=== PATIENT | male | born 1975 | race Caucasian/White ===

== ENCOUNTER → 2024-03-23 15:33 | Outpatient (REF) | payer MEDICARE, BC, SELFPAY ==
[2024-03-23 17:46] LABS: ALT (SGPT) 25 U/L (0-50); AST (SGOT) 28 U/L (17-59); Albumin 4.6 g/dl (3.5-5.0); Alkaline Phosphatase 82 U/L (38-126); Direct Bilirubin 0.4 mg/dl (0.0-0.4); Total Bilirubin 0.7 mg/dl (0.2-1.3); Total Protein 7.4 g/dl (6.3-8.2)
== END ==
LOC: REG 15:33
PROVIDERS: ATTENDING PHYSICIAN Internal Medicine
DX: B35.1 Tinea unguium (principal)
CPT/HCPCS: 36415; 80076

== ENCOUNTER 2024-04-29 22:21 | Inpatient (IN) | payer MEDICARE, BC, SELFPAY ==
[2024-04-29] VITALS (7 sets, daily range): BP systolic 108–132; BP diastolic 56–83; BMI 28.4
--- NOTE | 2024-04-29 20:37 | ED.GENMED ---
History of Present Illness
General
Chief Complaint: Weakness
Source: family (father)
Time Seen by Provider: 04/29/24 19:35
Travel History
Have you had any contact with someone who has COVID-19?: No
Do you have any symptoms of coronavirus? Fever > 100 degrees, chills, cough, shortness of breath, sore throat, loss of taste or smell, muscle aches, or headache?: No
History of Present Illness
History of Present Illness:
48-year-old gentleman with a prior history of a traumatic brain injury presents to the emergency room for evaluation due to lethargy. Patient lives with his father. Patient is able to perform his own activities of daily living and does have a job
but does require support from his father. He came home from work today and was noted to be much less interactive than normal. He was sitting and dozing off. That is noticed the patient's had a cough for the past couple days. Patient offers no
complaints but that states he would never really complain even if he was sick or having pain.
Past History
Past History
ED Past Medical History: Other (TBI)
ED Past Surgical History: Other (Trach)
Patient has exhibited threatening behavior?: No
PSI?: No
Social History
Tobacco: Non-smoker
Alcohol: None
Drug: None
Personal: Single
Living: with family
Phy Exam
Physical Exam
Physical Exam:
General: Awake, Alert, Oriented X2. Appears to have some cognitive limitations
Vitals: Febrile at 103 (by my own measurement), hypoxic on room air at 89%
Head: Atraumatic, area of ecchymosis noted right frontal region
Eyes: Pupils equal, EOMI
Throat: Airway intact, no exudates
Neck: Trachea midline
Lungs: Rhonchi bilateral bases l
Heart: Regular rate, no murmurs
Abd: Soft, Nontender, No pulsatile mass
Neuro: Nonfocal
Skin: Warm, dry, no rash
Extremities: pulses equal b/l, no edema
Course
Orders/Labs/Results
Orders:
Orders
04/29/24 20:34
Urinalysis Reflex To Culture Urgent
Date Specimen was Collected: 04/29/24
Time Specimen was Collected: 20:59
Acetaminophen [Tylenol] 650 mg PO NOW STA
04/29/24 20:41
CR Chest - 2 Views Urgent
Comment:
Reason For Exam: fever, cough
04/29/24 20:45
Blood Culture Q30M
EMILEE Source: Blood/Venous
Specimen Description:
04/29/24 20:51
COVID-19 Antigen Urgent
Source: Nasal Swab
Complete Blood Count/With Diff Urgent
Lactic Acid Q4H
Comment: CANCEL 2nd LACTIC ACID IF 1st LACTIC ACID IS LESS THAN 2
Influenza A+B Rapid Molecular Urgent
EMILEE Source: Nasal Swab
Specimen Description:
04/29/24 20:52
Comprehensive Metabolic Panel Urgent
Blood Culture Q30M
EMILEE Source: Blood/Venous
Specimen Description:
04/29/24 21:52
Azithromycin 500 mg/250 ml [Zithromax Infusion] 500 mg in 250 ml IV NOW
CefTRIAXone [Rocephin] 1,000 mg IV NOW STA
Abnormal Lab Results
04/29/24 04/29/24
20:51 20:52
Absolute Neuts (auto) 8.8 H 10^3/uL
(1.4-6.5)
Absolute Lymphs (auto) 0.8 L 10^3/uL
(1.2-3.4)
Absolute Monos (auto) 0.8 H 10^3/uL
(0.1-0.6)
Neutrophils % 83.7 H %
(42.2-75.2)
Lymphocytes % 7.9 L %
(20.5-51.1)
Sodium 134 L mmol/L
(135-145)
Chloride 96 L mmol/L
(98-107)
Glucose 112 H mg/dl
(70-99)
Total Bilirubin 1.6 H mg/dl
(0.2-1.3)
04/29/24 20:51
04/29/24 20:52
Vital Signs
Initial and Last Documented VS:
Initial Vital Signs
Temp Pulse Resp BP Pulse Ox
100.3 F 96 16 127/80 94
04/29/24 19:00 04/29/24 19:00 04/29/24 19:00 04/29/24 19:00 04/29/24 19:00
Last Documented Vital Signs
Temp Pulse Resp BP Pulse Ox
100.3 F 81 24 132/68 91
04/29/24 19:00 04/29/24 20:15 04/29/24 20:15 04/29/24 20:00 04/29/24 20:15
MDM/Problems Addressed
Differential Diagnosis Includes:
covid, flu, pneumonia, uti
MDM/Problems Addressed:
Patient presents with lethargy, mild cough. Noted to be hypoxic on room air at 89 to 90%. Patient hemodynamically stable. Pulse ox improved with supplemental oxygen. Given hypoxia will hospitalize for IV antibiotics.
*Radiology
Radiology exam reviewed: preliminary read by ED provider (Right lower lobe pneumonia)
*Pulse Oximetry
Patient hypoxic: yes
*Critical Care Note
Total Time (30-74mins, 75-104mins- exclusive of procedures): Not Applicable
Patient Management
Social determinants of health affecting care: Living situation and Strong social support
ED Attending Note
-
Portions of this chart may have been created with voice recognition software.� Occasional wrong word or��sound alike� substitutions may have occurred due to the inherent limitations of voice recognition software.
Discharge Plan
Departure
Patient Disposition: Admit
Date of Disposition: 04/29/24
Time of Disposition: 21:54
Admit to: Med/Surg
Presentation/result/management discussed w/ accepting MD/DO: Hospitalist
Condition: Fair
Discharge Problem:
Pneumonia, Hypoxia
Prescriptions:
No Action
metronidazole 500 MG tablet
500 mg PO TID Qty: 15 0RF
levofloxacin 250 MG tablet
250 mg PO DAILY Qty: 5 0RF
Referrals:
Brian Keys MD [Family Provider] -
Interventions
Interventions:
*General Assessment Last Done: 04/29/24 19:00
*ED COVID-19 Vaccine History Last Done: 04/29/24 19:00
ED- Cardiac Assessment Last Done: 04/29/24 21:04
ED- Neurological Assessment Last Done: 04/29/24 21:04
ED- Pulmonary Assessment Last Done: 04/29/24 21:04
Discharge Date and Time
Print Language: CANADIAN
[2024-04-29 21:00] LABS: % Basophils 0.3 % (0-2); % Eosinophils 0.1 % (0-6); % Immature Granulocytes 0.3 % (0-0.5); % Lymphocytes 7.9 % (20.5-51.1); % Monocytes 7.7 % (1.7-9.3); % Neutrophils 83.7 % (42.2-75.2); Absolute Lymphocytes 0.8 10^3/uL (1.2-3.4); Absolute Monocytes 0.8 10^3/uL (0.1-0.6); Absolute Neutrophils 8.8 10^3/uL (1.4-6.5); Hematocrit 44.1 % (39.0-52.0); Hemoglobin 15.6 g/dL (13.0-18.0); Mean Corp Hgb Conc. 35.4 g/dL (33.0-37.0); Mean Corpuscular Hgb 28.9 pg (27.0-31.0); Mean Corpuscular Volume 81.7 fL (80.0-94.0); Mean Platelet Volume 9.2 fL (7.4-10.4); Nucleated Red Blood Cells % 0 % (-); Platelet Count 222 10^3/uL (130-400); Red Cell Dist. Width 12.8 % (11.5-14.5); White Blood Cell Count 10.5 10^3/uL (4.8-10.8)
[2024-04-29] MEDS: TYLENOL 650 MG PO (21:01)
[2024-04-29 21:09] LABS: Lactic Acid 1.3 mmol/L (0.7-2.0)
[2024-04-29 21:16] LABS: ALT (SGPT) 18 U/L (0-50); AST (SGOT) 25 U/L (17-59); Albumin 4.4 g/dl (3.5-5.0); Alkaline Phosphatase 92 U/L (38-126); Blood Urea Nitrogen 19 mg/dl (9-20); Calcium 8.9 mg/dl (8.4-10.2); Carbon Dioxide 29 mmol/L (22-30); Glucose 112 mg/dl (70-99); Total Bilirubin 1.6 mg/dl (0.2-1.3); Total Protein 7.5 g/dl (6.3-8.2); eGFR > 60.00
[2024-04-29 21:19] LABS: COVID-19 Antigen Negative (Negative)
[2024-04-29 21:24] LABS: Chloride 96 mmol/L (98-107); Potassium 4.1 mmol/L (3.5-5.1); Sodium 134 mmol/L (135-145)
[2024-04-29] MEDS: ROCEPHIN 1000 MG IV (21:57)
[2024-04-29] MEDS: ZITHROMAX INFUSION 250 IV (21:57)
[2024-04-29] MEDS: NSS 1000 IV ×2 (22:00→23:28)
--- NOTE | 2024-04-29 22:15 | HPS.HSE ---
Family Physician
-
Family Physician: Reed Keys
Chief Complaint
-
fatigue
History of Present Illness
48-year-old male with past medical history of traumatic brain injury with intellectual disability, hyperlipidemia presenting with lethargy and fatigue over the past 12 hours. He did have a cough that is slightly more prominent than usual as well as
shortness of breath. He did have chills. No chest pain. No nausea or vomiting or diarrhea.
Patient's balance and gait has been worsening over the past year.
No smoking or alcohol use.
Medical History
Past Medical History
Past Medical History: Reports Other (traumatic brain injury with intellectual disability, hyperlipidemia)
Past Surgical History: Reports None
Social History
Tobacco: Non-smoker
Alcohol: None
Drug: None
Family History
Family History: Not pertinent
Allergies / Home Medications
Allergies reflects when Allergies were last updated in [facility].
Home Medications with original date entered in [facility]
Allergy/Medication List:
Allergies
Allergy/AdvReac Type Severity Reaction Status Date / Time
No Known Allergies Allergy Verified 04/29/24 19:05
Home Medications
terbinafine HCl 250 mg tablet 250 mg PO Q36H 04/29/24
Review of Systems
-
History Source: Patient
A 12 point ROS was completed and negative except as noted: Yes
Constitutional: Reports See HPI
EENT: Reports No Symptoms
Respiratory: Reports See HPI
Cardiac: Reports No Symptoms
Abdomen/GI: Reports No Symptoms
: Reports No Symptoms
Musculoskeletal: Reports No Symptoms
Skin: Reports No Symptoms
Neurological: Reports No Symptoms
Endocrine: Reports No Symptoms
Hematologic/Lymphatic: Reports No Symptoms
Psych: Reports No Symptoms
Physical Exam
Vital Signs
Vital Signs
Temp Pulse Resp BP Pulse Ox
100.3 F 81 24 132/68 91
04/29/24 19:00 04/29/24 20:15 04/29/24 20:15 04/29/24 20:00 04/29/24 20:15
Physical Exam
General: Well Developed, Well Nourished and No Apparent Distress
HEENT: NormoCephalic, Moist mucous membranes and Atraumatic
Respiratory: Clear
Cardiac: S1/S2 and Regular Rhythm; No Murmur or Rub
GI: Soft, Non Tender, Non Distended and Normal Bowel Sounds; No Organomegaly
Rectal: Deferred by Provider
Musculoskeletal: No Clubbing, No Cyanosis and No Edema
Skin: No Rash
Neuro: Nonfocal/grossly intact
Laboratory Results
-
04/29/24 20:51
04/29/24 20:52
Laboratory Results
Lactic Acid Cancelled 04/29/24 21:52
Total Bilirubin 1.6 mg/dl (0.2-1.3) H 04/29/24 20:52
AST 25 U/L (17-59) 04/29/24 20:52
ALT 18 U/L (0-50) 04/29/24 20:52
Alkaline Phosphatase 92 U/L (38-126) 04/29/24 20:52
Data Reviewed
-
Lab Data: Labs Reviewed by me
Old Records: Reviewed
Impression/Plan
-
IMPRESSION:
PLAN:
# Sepsis (fever, tachypnea) secondary to community-acquired pneumonia
-Chest x-ray shows mild pneumonia at the posterior lung base
-COVID and influenza negative
-Blood cultures
-Sputum culture
-Sputum culture
-IV fluids
-Ceftriaxone/azithromycin
Onychomycosis
-Continue terbinafine
Traumatic brain injury with intellectual disability
Hyperlipidemia
Full code
DVT prophylaxis�heparin
Regular diet
--- NOTE | 2024-04-29 23:00 | PTCARENOTE ---
Patient arrived to floor via stretcher accompanied by ED PCT and Father. Patient ambulated self to bed with x1 assist. Nursing assessment completed and as documented, patients Father helped complete admission questions. Call ramírez within reach and
instructed use, bed alarm on and in place, VSS, continue with current care plan.
[2024-04-29 23:22] LABS: Urine Albumin Negative (Neg - Trace); Urine Bilirubin Negative (Negative); Urine Character Clear (Clear); Urine Color Yellow; Urine Glucose Negative (Negative); Urine Ketone Negative (Negative); Urine Leukocyte Negative (Negative); Urine Nitrite Negative (Negative); Urine Occult Blood Negative (Negative); Urine Urobilinogen Negative (Neg - 1+)
[2024-04-30 07:25] LABS: % Basophils 0.2 % (0-2); % Immature Granulocytes 0.4 % (0-0.5); % Lymphocytes 7.6 % (20.5-51.1); % Monocytes 7.5 % (1.7-9.3); % Neutrophils 84.3 % (42.2-75.2); Absolute Lymphocytes 0.7 10^3/uL (1.2-3.4); Absolute Monocytes 0.7 10^3/uL (0.1-0.6); Hematocrit 45.5 % (39.0-52.0); Hemoglobin 15.2 g/dL (13.0-18.0); Mean Corp Hgb Conc. 33.4 g/dL (33.0-37.0); Mean Corpuscular Hgb 28.3 pg (27.0-31.0); Mean Corpuscular Volume 84.7 fL (80.0-94.0); Mean Platelet Volume 9.9 fL (7.4-10.4); Nucleated Red Blood Cells % 0 % (-); Platelet Count 208 10^3/uL (130-400); Red Blood Cell Count 5.37 10^6/uL (4.70-6.10); Red Cell Dist. Width 12.9 % (11.5-14.5); White Blood Cell Count 9.5 10^3/uL (4.8-10.8)
[2024-04-30 07:39] LABS: ALT (SGPT) 17 U/L (0-50); AST (SGOT) 23 U/L (17-59); Albumin 3.9 g/dl (3.5-5.0); Alkaline Phosphatase 84 U/L (38-126); Blood Urea Nitrogen 17 mg/dl (9-20); Calcium 8.3 mg/dl (8.4-10.2); Carbon Dioxide 27 mmol/L (22-30); Chloride 101 mmol/L (98-107); Estimated Creatinine Clearance 74 ml/min; Glucose 109 mg/dl (70-99); Potassium 4.2 mmol/L (3.5-5.1); Sodium 136 mmol/L (135-145); Total Bilirubin 1.2 mg/dl (0.2-1.3); Total Protein 6.7 g/dl (6.3-8.2); eGFR > 60.00
[2024-04-30 07:41] VITALS: BP 115/65
[2024-04-30] MEDS: TYLENOL 650 MG PO ×3 (07:48→19:44)
[2024-04-30] MEDS: HEPARIN 5000 UNITS SC ×2 (07:48→19:45)
[2024-04-30] MEDS: NSS IV ×2 (07:55→17:11)
--- NOTE | 2024-04-30 09:22 | W.PN.HOSP.TC ---
Today's Communication/Plan
-
see bold
Assessment / Plan
Assessment / Plan
Gen: NAD, Awake and alert
Eyes: EOMI, PERRLA, no scleral icterus.
Neck: supple.
CV: RRR, +S1/S2, no m/r/g.
Resp: CTAB, no rales, wheezes, or rhonchi.
Abd: +BS, soft, NT, ND
Skin: No rashes.
Neuro: CN 2-12 intact, non-focal.
Psych: Normal mood and affect.
CXR: Mild pneumonia at the posterior lung base.
Sepsis due to community-acquired pneumonia:
-Chest x-ray shows mild pneumonia at the posterior lung base
-COVID and influenza negative
-follow BCXs/sputum culture
-currently on 1.5L NC O2, wean as tolerated
-IV fluids
-Ceftriaxone/azithromycin
Other problems:
Onychomycosis: Continue terbinafine
Traumatic brain injury with intellectual disability
Hyperlipidemia
FULL/heparin
Anticipated Discharge: 24 - 48 hours
Subjective/Interval History
-
Date of Service: April 30, 2024
No new complaints.
Objective Data
-
Labs:
Laboratory Results
04/29/24 04/30/24
20:52 06:32
WBC 9.5
Hgb 15.2
Hct 45.5
Plt Count 208
Sodium 134 L 136
Potassium 4.1 4.2
Chloride 96 L 101
Carbon Dioxide 27
BUN 17
Creatinine 1.2
Glucose 109 H
Calcium 8.3 L
Total Bilirubin 1.2
AST 23
ALT 17
Alkaline Phosphatase 84
Vital Signs:
Vital Signs
Temp Pulse Resp BP Pulse Ox
99.4 F 85 15 115/65 97
04/30/24 09:05 04/30/24 07:41 04/30/24 07:41 04/30/24 07:41 04/30/24 07:41
I&O
04/29/24 04/30/24 05/01/24
06:59 06:59 06:59
Output Total 1175 / 1175
Balance -1175 / -1175
[2024-04-30] MEDS: NSS 1000 IV ×2 (13:10→22:27)
[2024-04-30 15:24] VITALS: BP 118/73
[2024-04-30] MEDS: ROCEPHIN 1000 MG IV (22:28)
[2024-04-30] MEDS: STERILE WATER FOR INJECTION 10 ML IV (22:28)
[2024-04-30] MEDS: ZITHROMAX INFUSION 250 IV (22:30)
[2024-04-30 23:00] VITALS: BP 137/61
[2024-05-01] MEDS: TYLENOL 650 MG PO (02:50)
[2024-05-01 07:00] VITALS: BP 117/71
[2024-05-01] MEDS: HEPARIN 5000 UNITS SC ×2 (08:18→20:34)
--- NOTE | 2024-05-01 10:31 | W.PN.HOSP.TC ---
Today's Communication/Plan
-
see bold
Assessment / Plan
Assessment / Plan
Gen: NAD, Awake and alert
Eyes: EOMI, PERRLA, no scleral icterus.
Neck: supple.
CV: remains RRR, +S1/S2, no m/r/g.
Resp: remains CTAB, no rales, wheezes, or rhonchi.
Abd: remains +BS, soft, NT, ND
Skin: No rashes.
Neuro: CN 2-12 intact, non-focal.
Psych: Normal mood and affect.
04/29/24 20:52 Blood/Venous Blood Culture - Preliminary
No Growth in 24 hours- Final report to follow
04/29/24 20:51 Nasal Swab Influenza Types A & B (BC) - Final
Negative for Influenza A & B, NAAT
Negative results must be combined with clinical observations
and patient history.
Nucleic Acid Amplification test (NAAT)performed on the
[email or web address] NOW platform.
CXR: Mild pneumonia at the posterior lung base.
Sepsis due to community-acquired pneumonia:
-Chest x-ray shows mild pneumonia at the posterior lung base
-COVID and influenza negative
-follow BCXs/sputum culture
-s/p IVFs
-weaned to RA
-cont Ceftriaxone/azithromycin
Other problems:
Onychomycosis: Continue terbinafine
Traumatic brain injury with intellectual disability
Hyperlipidemia
FULL/heparin
Anticipated Discharge: 24 - 48 hours
Subjective/Interval History
-
Date of Service: May 01, 2024
Denies CP/SOB.
Objective Data
-
Vital Signs:
Vital Signs
Temp Pulse Resp BP Pulse Ox
98.9 F 64 14 117/71 93
05/01/24 07:00 05/01/24 07:00 05/01/24 07:00 05/01/24 07:00 05/01/24 07:00
I&O
04/30/24 05/01/24 05/02/24
06:59 06:59 06:59
Intake Total 4140 / 4140
Output Total 1175 / 1175 400 / 400
Balance -1175 / -1175 3740 / 3740
[2024-05-01 15:00] VITALS: BP 125/72
[2024-05-01 16:15] VITALS: BP 125/72
--- NOTE | 2024-05-01 16:42 | CM ---
Reviewed chart, met with patient to obtain information for assessment. Patient a little confused/forgetful due to intellectual disability per attending note, however he was able to provide most information for assessment.
Patient stated that he lives with his father in a two story home with two steps to enter. He described himself as independent with his ADLs, self care bathing, dressing and ambulates with a walker. His father assists with channel partners, cooking,
cleaning and laundry.
Patient doesn't believe he has had VN services or been to a SNF in the past.
Patient has a prescription plan and uses, [facility] in [place] for all of his medications.
Patient's PCP is, Brian Keys.
Patient appears to be at baseline level of functioning. He would like to return home with his father when stable for discharge.
Plan: Case management will continue to follow and assist with discharge planning. Will watch for needs.
[2024-05-01] MEDS: STERILE WATER FOR INJECTION 10 ML IV (22:16)
[2024-05-01] MEDS: ROCEPHIN 1000 MG IV (22:16)
[2024-05-01] MEDS: ZITHROMAX INFUSION 250 IV (22:16)
[2024-05-01 23:00] VITALS: BP 120/63
[2024-05-02 07:00] VITALS: BP 116/68
[2024-05-02 07:15] LABS: Hematocrit 40.2 % (39.0-52.0); Hemoglobin 13.9 g/dL (13.0-18.0); Mean Corp Hgb Conc. 34.6 g/dL (33.0-37.0); Mean Corpuscular Hgb 28.4 pg (27.0-31.0); Mean Corpuscular Volume 82.2 fL (80.0-94.0); Platelet Count 205 10^3/uL (130-400); Red Blood Cell Count 4.89 10^6/uL (4.70-6.10); White Blood Cell Count 5.5 10^3/uL (4.8-10.8)
[2024-05-02 07:51] LABS: Blood Urea Nitrogen 17 mg/dl (9-20); Calcium 8.5 mg/dl (8.4-10.2); Carbon Dioxide 26 mmol/L (22-30); Chloride 103 mmol/L (98-107); Estimated Creatinine Clearance 88 ml/min; Glucose 99 mg/dl (70-99); Sodium 137 mmol/L (135-145); eGFR > 60.00
--- NOTE | 2024-05-02 08:02 | W.PN.HOSP.TC ---
Today's Communication/Plan
-
Goal for discharge in 1 to 2 days. Awaiting 24 hours without fever.
Assessment / Plan
Assessment / Plan
Gen: NAD, Awake and alert
Eyes: EOMI, PERRLA, no scleral icterus.
Neck: supple.
CV: continues to remain RRR, +S1/S2, no m/r/g.
Resp: continues to remain CTAB, no rales, wheezes, or rhonchi.
Abd: continues to remain +BS, soft, NT, ND
Skin: No rashes.
Neuro: CN 2-12 intact, non-focal.
Psych: Normal mood and affect.
04/29/24 20:52 Blood/Venous Blood Culture - Preliminary
No Growth in 24 hours- Final report to follow
04/29/24 20:52 Blood/Venous Blood Culture - Preliminary
No Growth in 48 hours- Final report to follow
04/29/24 20:51 Nasal Swab Influenza Types A & B (BC) - Final
Negative for Influenza A & B, NAAT
Negative results must be combined with clinical observations
and patient history.
Nucleic Acid Amplification test (NAAT)performed on the
[employer] NOW platform.
CXR: Mild pneumonia at the posterior lung base.
Sepsis due to community-acquired pneumonia:
-Chest x-ray shows mild pneumonia at the posterior lung base
-COVID and influenza negative
-follow BCXs/sputum culture
-s/p IVFs
-weaned to RA
-repeat CXR
-cont Ceftriaxone/azithromycin
Other problems:
Onychomycosis: Continue terbinafine
Traumatic brain injury with intellectual disability
Hyperlipidemia
FULL/heparin
Anticipated Discharge: Within 24 hours
Subjective/Interval History
-
Date of Service: May 02, 2024
No new complaints.
Objective Data
-
Labs:
Laboratory Results
05/02/24
06:16
WBC 5.5
Hgb 13.9
Hct 40.2
Plt Count 205
Sodium 137
Potassium 4.0
Chloride 103
Carbon Dioxide 26
BUN 17
Creatinine 1.0
Glucose 99
Calcium 8.5
Vital Signs:
Vital Signs
Temp Pulse Resp BP Pulse Ox
98.6 F 71 18 120/63 95
05/01/24 23:00 05/01/24 23:00 05/01/24 23:00 05/01/24 23:00 05/01/24 23:00
I&O
05/01/24 05/02/24 05/03/24
06:59 06:59 06:59
Intake Total 4140 / 4140 2099
Output Total 400 / 400
Balance 3740 / 3740 2099
[2024-05-02] MEDS: HEPARIN 5000 UNITS SC ×2 (08:05→22:12)
[2024-05-02 15:00] VITALS: BP 126/72
[2024-05-02] MEDS: ZITHROMAX INFUSION 250 IV (22:12)
[2024-05-02] MEDS: STERILE WATER FOR INJECTION 10 ML IV (22:13)
[2024-05-02] MEDS: ROCEPHIN 1000 MG IV (22:13)
[2024-05-02 23:00] VITALS: BP 124/70
[2024-05-03 06:51] LABS: Hematocrit 39.4 % (39.0-52.0); Hemoglobin 13.6 g/dL (13.0-18.0); Mean Corp Hgb Conc. 34.5 g/dL (33.0-37.0); Mean Corpuscular Hgb 28.2 pg (27.0-31.0); Mean Corpuscular Volume 81.7 fL (80.0-94.0); Mean Platelet Volume 9.9 fL (7.4-10.4); Platelet Count 221 10^3/uL (130-400); Red Blood Cell Count 4.82 10^6/uL (4.70-6.10); Red Cell Dist. Width 13.1 % (11.5-14.5)
[2024-05-03 07:10] VITALS: BP 120/78
[2024-05-03] MEDS: HEPARIN 5000 UNITS SC (07:33)
[2024-05-03 07:35] LABS: Blood Urea Nitrogen 14 mg/dl (9-20); Calcium 8.7 mg/dl (8.4-10.2); Carbon Dioxide 25 mmol/L (22-30); Chloride 102 mmol/L (98-107); Estimated Creatinine Clearance 98 ml/min; Glucose 94 mg/dl (70-99); Sodium 138 mmol/L (135-145); eGFR > 60.00
--- NOTE | 2024-05-03 13:12 | CM ---
Received notification from attending that patient is medically stable for discharge. Met with patient who was agreeable. Placed a call to patient's father who confirmed that he is also in agreement with discharge. Reviewed IMM. Patient's father
confirmed that he will be coming in to transport patient home.
Plan: Case management will continue to follow and assist with discharge planning. Home.
--- NOTE | 2024-05-03 14:18 | W.PN.HOSP.TC ---
Addendum entered and electronically signed by Avni Espinal MD 05/03/24 16:40:
[id number]
Original Note:
Today's Communication/Plan
-
dc on cefdinir 300mg BID x 4 more days to complete day course
F/u PCP outpatient
Assessment / Plan
Assessment / Plan
Gen: NAD, Awake and alert
Eyes: EOMI, PERRLA, no scleral icterus.
Neck: supple.
CV: continues to remain RRR, +S1/S2, no m/r/g.
Resp: continues to remain CTAB, no rales, wheezes, or rhonchi.
Abd: continues to remain +BS, soft, NT, ND
Skin: No rashes.
Neuro: CN 2-12 intact, non-focal.
Psych: Normal mood and affect.
04/29/24 20:52 Blood/Venous Blood Culture - Preliminary
No Growth in 24 hours- Final report to follow
04/29/24 20:52 Blood/Venous Blood Culture - Preliminary
No Growth in 48 hours- Final report to follow
04/29/24 20:51 Nasal Swab Influenza Types A & B (BC) - Final
Negative for Influenza A & B, NAAT
Negative results must be combined with clinical observations
and patient history.
Nucleic Acid Amplification test (NAAT)performed on the
[employer] NOW platform.
CXR: Mild pneumonia at the posterior lung base.
Sepsis due to community-acquired pneumonia:
-Chest x-ray shows mild pneumonia at the posterior lung base, improved
-COVID and influenza negative
-follow BCXs/sputum culture
-s/p IVFs
-weaned to RA
-cont Ceftriaxone/azithromycin - completed 3 days 500mg; Transition to cefdinir 300mg BID x 4 more days to complete 7 day course of abx.
Other problems:
Onychomycosis: Continue terbinafine
Traumatic brain injury with intellectual disability
Hyperlipidemia
FULL/heparin
More than 30 minutes spent in discharge including
Final examination of the patient
Summarizing hospital stay
Instructions for continuing care to all relevant caregivers
Preparation of discharge records, prescriptions, and referral forms
Total time spent (35 in minutes):
Anticipated Discharge: Today
Subjective/Interval History
-
Date of Service: May 03, 2024
feels better, no acute events overnight
Objective Data
-
Labs:
Laboratory Results
05/03/24
05:27
WBC 5.0
Hgb 13.6
Hct 39.4
Plt Count 221
Sodium 138
Potassium 4.0
Chloride 102
Carbon Dioxide 25
BUN 14
Creatinine 0.9
Glucose 94
Calcium 8.7
Vital Signs:
Vital Signs
Temp Pulse Resp BP Pulse Ox
98.1 F 65 17 120/78 96
05/03/24 07:10 05/03/24 07:10 05/03/24 07:10 05/03/24 07:10 05/03/24 07:10
I&O
05/02/24 05/03/24 05/04/24
06:59 06:59 06:59
Intake Total 2099
Balance 2099
Review of Systems
-
History Source: Patient
All other systems: Not reviewed unless documented
Data Reviewed
-
Diagnostic Radiology: Image personally visualized and interpreted and Report Reviewed by me
Labs: Labs Reviewed by me
--- NOTE | 2024-05-03 14:21 | W.DS.TRANS ---
DC Summary - District Superintendent
-
Discharge Instructions:
Discharge Diagnosis/Procedures pneumonia
Blood Work cbc and bmp in 1 week with pcp
Others Tests chest imaging as per pcp
Instructions:
Stand-Alone Forms:
Changes to Home Medications: Yes
Discharge Medications:
DC Medications w/original date entered in [employer]
terbinafine HCl 250 mg tablet 250 mg PO Q36H fungal infection 04/29/24
cefdinir 300 mg capsule 300 mg PO BID 4 days #8 caps 05/03/24
Home Medication Changes
Pending Results: No
[2024-05-03 15:24] VITALS: BP 118/76
== END 2024-05-03 16:23 | disposition home or self-care (01) | DRG 871 ==
LOC: 3 WEST ACU 22:21
PROVIDERS: Internal Medicine; ADMITTING PHYSICIAN Hospitalist; ATTENDING PHYSICIAN Internal Medicine; EMERGENCY PHYSICIAN Emergency Medicine; FAMILY PHYSICIAN Internal Medicine
DX: A41.9 Sepsis, unspecified organism (principal); J18.9 Pneumonia, unspecified organism; S06.9XAS Unspecified intracranial injury with loss of consciousness status unknown, sequela; F79 Unspecified intellectual disabilities; E78.5 Hyperlipidemia, unspecified; R09.02 Hypoxemia; B35.1 Tinea unguium; Z79.899 Other long term (current) drug therapy; Z11.52 Encounter for screening for COVID-19
CPT/HCPCS: 71046; 80048; 80053; 81003; 83605; 85025; 85027; 87040; 87502; 87811; 96361; 96365; 96375; 99285

== ENCOUNTER → 2024-05-08 10:14 | Outpatient (REF) | payer MEDICARE, BC, SELFPAY ==
[2024-05-08 11:04] LABS: % Basophils 0.4 % (0-2); % Eosinophils 3.7 % (0-6); % Immature Granulocytes 1.3 % (0-0.5); % Lymphocytes 20.1 % (20.5-51.1); % Monocytes 6.4 % (1.7-9.3); % Neutrophils 68.1 % (42.2-75.2); Absolute Eosinophils 0.3 10^3/uL (0-0.7); Absolute Immature Granulocytes 0.1 10^3/uL (0-0.05); Absolute Lymphocytes 1.5 10^3/uL (1.2-3.4); Absolute Monocytes 0.5 10^3/uL (0.1-0.6); Absolute Neutrophils 5.2 10^3/uL (1.4-6.5); Hematocrit 43.1 % (39.0-52.0); Hemoglobin 14.7 g/dL (13.0-18.0); Mean Corp Hgb Conc. 34.1 g/dL (33.0-37.0); Mean Corpuscular Hgb 28.3 pg (27.0-31.0); Mean Corpuscular Volume 82.9 fL (80.0-94.0); Nucleated Red Blood Cells % 0 % (-); Platelet Count 436 10^3/uL (130-400); Red Cell Dist. Width 13.2 % (11.5-14.5); White Blood Cell Count 7.7 10^3/uL (4.8-10.8)
[2024-05-08 11:26] LABS: Blood Urea Nitrogen 16 mg/dl (9-20); Calcium 9.4 mg/dl (8.4-10.2); Carbon Dioxide 28 mmol/L (22-30); Chloride 104 mmol/L (98-107); Glucose 99 mg/dl (70-99); Potassium 4.5 mmol/L (3.5-5.1); Sodium 141 mmol/L (135-145); eGFR > 60.00
== END ==
LOC: REG 10:14
PROVIDERS: ATTENDING PHYSICIAN Internal Medicine
DX: J18.9 Pneumonia, unspecified organism (principal); R09.02 Hypoxemia
CPT/HCPCS: 36415; 80048; 85025

== ENCOUNTER 2024-05-14 04:36 | Inpatient (IN) | payer MEDICARE, BC, SELFPAY ==
[2024-05-13 21:41] VITALS: BP 120/70
[2024-05-13 21:52] LABS: % Basophils 0.2 % (0-2); % Eosinophils 0.7 % (0-6); % Immature Granulocytes 0.4 % (0-0.5); % Lymphocytes 9.9 % (20.5-51.1); % Monocytes 6.4 % (1.7-9.3); % Neutrophils 82.4 % (42.2-75.2); Absolute Eosinophils 0.1 10^3/uL (0-0.7); Absolute Immature Granulocytes 0.1 10^3/uL (0-0.05); Absolute Lymphocytes 1.3 10^3/uL (1.2-3.4); Absolute Monocytes 0.9 10^3/uL (0.1-0.6); Absolute Neutrophils 11.2 10^3/uL (1.4-6.5); Hematocrit 43.6 % (39.0-52.0); Hemoglobin 14.9 g/dL (13.0-18.0); Mean Corp Hgb Conc. 34.2 g/dL (33.0-37.0); Mean Corpuscular Hgb 28.3 pg (27.0-31.0); Mean Corpuscular Volume 82.9 fL (80.0-94.0); Mean Platelet Volume 8.7 fL (7.4-10.4); Nucleated Red Blood Cells % 0 % (-); Platelet Count 361 10^3/uL (130-400); Red Blood Cell Count 5.26 10^6/uL (4.70-6.10); Red Cell Dist. Width 13.2 % (11.5-14.5); White Blood Cell Count 13.6 10^3/uL (4.8-10.8)
[2024-05-13 22:07] LABS: ALT (SGPT) 30 U/L (0-50); AST (SGOT) 25 U/L (17-59); Albumin 4.6 g/dl (3.5-5.0); Alkaline Phosphatase 99 U/L (38-126); Blood Urea Nitrogen 16 mg/dl (9-20); Calcium 9.5 mg/dl (8.4-10.2); Carbon Dioxide 29 mmol/L (22-30); Chloride 99 mmol/L (98-107); Glucose 105 mg/dl (70-99); Potassium 4.3 mmol/L (3.5-5.1); Sodium 137 mmol/L (135-145); Total Protein 7.8 g/dl (6.3-8.2); eGFR 56.37
[2024-05-13 22:15] LABS: Lipase 180 U/L (23-300)
[2024-05-13 22:52] VITALS: BP 142/82
[2024-05-13 23:00] VITALS: BP 124/77
--- NOTE | 2024-05-13 23:00 | ED.GENMED ---
History of Present Illness
General
Chief Complaint: Abdominal Pain
Source: patient
Exam Limitations: none
Time Seen by Provider: 05/13/24 22:55
Travel History
Have you had any contact with someone who has COVID-19?: No
Do you have any symptoms of coronavirus? Fever > 100 degrees, chills, cough, shortness of breath, sore throat, loss of taste or smell, muscle aches, or headache?: No
History of Present Illness
History of Present Illness:
See MDM
Past History
Past History
ED Past Medical History: Other (TBI)
ED Past Surgical History: Other (Trach)
Patient has exhibited threatening behavior?: No
PSI?: No
Social History
Tobacco: Non-smoker
Alcohol: None
Drug: None
Personal: Single
Living: with family
Phy Exam
Physical Exam
Physical Exam:
See MDM
Course
Orders/Labs/Results
Orders:
Orders
05/13/24 21:48
Complete Blood Count/With Diff Urgent
Comprehensive Metabolic Panel Urgent
Lipase Urgent
05/13/24 22:41
Electrocardiogram (*1) Urgent
Reason for Study: Other
Other Reason for Exam: Respiratory Distress
Cardiac Monitoring- Treatment ONCE
EKG- Treatment ONCE
IV Insert/Care/Rem.- Treatment PRN
CR Chest - 2 Views Urgent
Comment:
Reason For Exam: respiratory distress
O2 Therapy [RESP] Urgent
Titrate/Wean O2 to maintain O2 sat greater than (%): 93
Special Instructions: TO MAINTAIN CONTINUOUS O2 SATS >/= 93%
Pulse Ox/cont/shift [RESP] Urgent
Quantity: 1
Special Instructions: continuous pulse ox
05/13/24 22:53
NT-proBNP Urgent
Troponin I Urgent
05/13/24 22:59
CT Abd/pelvis W Iv Cont Urgent
Comment:
Reason For Exam: R abd pain
Ketorolac [Toradol] 30 mg IV NOW STA
05/14/24 01:13
Piperacillin/Tazo 3.375 Gram [Zosyn] 3.375 gram in 50 ml IV NOW
Vancomycin [Vancocin] 2,000 mg 0.9% Sodium Chloride 500 ml [Nss] 500 ml IV NOW
05/14/24 01:15
Blood Culture Q30M
EMILEE Source: Blood/Venous
Specimen Description:
05/14/24 01:45
Blood Culture Q30M
EMILEE Source: Blood/Venous
Specimen Description:
Abnormal Lab Results
05/13/24
21:48
WBC 13.6 H 10^3/uL
(4.8-10.8)
Abs Immat Gran (auto) 0.1 H 10^3/uL
(0-0.05)
Absolute Neuts (auto) 11.2 H 10^3/uL
(1.4-6.5)
Absolute Monos (auto) 0.9 H 10^3/uL
(0.1-0.6)
Neutrophils % 82.4 H %
(42.2-75.2)
Lymphocytes % 9.9 L %
(20.5-51.1)
Creatinine 1.5 H mg/dL
(0.7-1.3)
Glucose 105 H mg/dl
(70-99)
05/13/24 21:48
05/13/24 21:48
Vital Signs
Initial and Last Documented VS:
Initial Vital Signs
Temp Pulse Resp BP Pulse Ox
98.7 F 74 16 120/70 97
05/13/24 21:41 05/13/24 21:41 05/13/24 21:41 05/13/24 21:41 05/13/24 21:41
Last Documented Vital Signs
Temp Pulse Resp BP Pulse Ox
98.7 F 73 18 125/63 95
05/13/24 21:41 05/14/24 01:00 05/14/24 01:00 05/14/24 01:00 05/14/24 01:00
MDM/Problems Addressed
Differential Diagnosis Includes:
HPI and MDM Narrative:
48-year-old male presenting with father for evaluation of right abdominal pain. Father is unsure if this is true pain or not. Given his prior traumatic brain injury, father states that he sometimes complains of pain and forgets about it later.
Because symptoms have been persistent, he came to the emergency department. Symptoms are not worse with food intake or movement
On exam, patient does have right abdominal pain. There is no guarding. Will give Toradol and obtain CT
Physical exam
General: Well appearing and non-toxic
HEENT: protecting airway
Neck: appears supple
CV: No evidence of cyanosis
Resp: No accessory muscle use. Decreased lung sounds to the right base
Abd: Non-distended. Right mid abdominal pain without rebound
Extremities: No deformities
Neuro: alert
Psych: Normal affect
Skin: Intact
Problems Addressed including Acute and Chronic Conditions affecting care:
1. Abdominal pain
Acuity: acute
Prognosis: stable
Details: Will obtain CT to rule out any evidence of early appendicitis or colitis or kidney stone
2. Pneumonia
Acuity: acute
Prognosis: unstable
Details: Given recurrence of symptoms, will start vancomycin and Zosyn
Updates
CT shows no acute intra-abdominal pathology but there is evidence of right lower lobe pneumonia. Patient developing mild hypoxia requiring 2 L nasal cannula. Given recurrence of pneumonia, will start IV antibiotics and admit
Differential Diagnosis (but not limited to): Colitis, kidney stone, appendicitis, cholecystitis
Testing considered: Ultrasound but will obtain CT first
Drug therapy (if applicable): OTC meds, please see d/c instruction regarding Rx drugs
Amount and/or Complexity of Data Reviewed
Clinical info obtained from: Patient and father
External data reviewed: N/A
Labs I independently reviewed (but not limited to): Mild leukocytosis
Radiology: The CT scan was personally and independently reviewed. In addition, official CT report reviewed.
X-ray independently reviewed: Chest x-ray consistent with right lower lobe pneumonia
Pulse Ox: hypoxic
EKG independently reviewed: Sinus rhythm, normal axis, no STEMI
Vanstone Machine Operator: N/A
Critical Care: N/A
Risk of Complication:
Social Determinants of health: Good social support
Discussed with other providers: Hospitalist
Escalation of Care includes Admit/Obs: Given the pneumonia and hypoxia, will admit
Occasional wrong word or 'sound a like' substitutions may have occurred due to the inherent limitations of voice recognition software. Read the chart carefully and recognize, using context, where substitutions have occurred.
*Critical Care Note
Total Time (30-74mins, 75-104mins- exclusive of procedures): Not Applicable
ED Attending Note
-
Portions of this chart may have been created with voice recognition software.� Occasional wrong word or��sound alike� substitutions may have occurred due to the inherent limitations of voice recognition software.
Discharge Plan
Departure
Patient Disposition: Admit
Date of Disposition: 05/14/24
Time of Disposition: 01:14
Admit to: Med/Surg
Presentation/result/management discussed w/ accepting MD/DO: Hospitalist
Discharge Problem:
Hypoxia, Pneumonia
Prescriptions:
No Action
terbinafine HCl 250 mg tablet
250 mg PO Q36H
Patient Comments:
04/29/2024: Family states med is given 'every day & a half'
cefdinir 300 mg capsule
300 mg PO BID 4 Days Qty: 8 0RF
Referrals:
UNKNOWN - PT DOES,NOT KNOW [Family Provider] -
Interventions
Interventions:
*Risk Screen - Suicide Last Done: 05/13/24 21:41
*General Assessment Last Done: 05/13/24 21:41
*Neglect/Abuse Screening Last Done: 05/13/24 21:41
ED- Fall Risk Assessment Last Done: 05/13/24 22:33
*ED COVID-19 Vaccine History Last Done: 05/13/24 22:34
BI-Hcklmr-Vmithkduye Assessment Last Done: 05/13/24 22:31
Discharge Date and Time
Print Language: YAKUT
[2024-05-13 23:31] LABS: NT-proBNP < 20.0 pg/ml; Troponin I < 0.012 ng/ml
[2024-05-14] VITALS (12 sets, daily range): BP systolic 111–138; BP diastolic 63–79; BMI 28.6
[2024-05-14] MEDS: TORADOL 30 MG IV (00:28)
[2024-05-14] MEDS: ZOSYN 50 IV ×4 (02:08→19:12)
[2024-05-14] MEDS: VANCOCIN 540 MG IV (02:46)
--- NOTE | 2024-05-14 03:42 | HPS.HSE ---
Family Physician
-
Family Physician: NOT KNOW UNKNOWN - PT DOES
Chief Complaint
-
Abdominal pain
History of Present Illness
Patient 48 years old male history of traumatic brain injury with intellectual disability, dyslipidemia, recent admission for pneumonia discharged from the hospital back in May 03, came into the hospital with abdominal pain. Patient complains of
right abdominal pain for couple days and also was noted to be hypoxic and placed on 2 L of oxygen. He was noticed to have a white count of 13.6. Patient has some dry cough and some worsening of his usual shortness of breath. No chest pain. No
nausea vomiting or diarrhea. Patient had a CT scan of the abdomen that was able to visualize right lower lobe consolidation with groundglass opacities correlation for infection. He also had a chest x-ray that shows abnormality but pending
radiology report. BNP less than 20, troponin less than 0.012. He was referred to hospitalist for further evaluation.
Medical History
Past Medical History
Past Medical History: Reports Other (Traumatic brain injury with intellectual disability, dyslipidemia, pneumonias.)
Past Surgical History: Reports None
Social History
Tobacco: Non-smoker
Alcohol: None
Drug: None
Family History
Family History: Not pertinent
Allergies / Home Medications
Allergies reflects when Allergies were last updated in [facility].
Home Medications with original date entered in [facility]
Allergy/Medication List:
Allergies
Allergy/AdvReac Type Severity Reaction Status Date / Time
No Known Allergies Allergy Verified 04/29/24 19:05
Home Medications
terbinafine HCl 250 mg tablet 250 mg PO Q36H fungal infection 04/29/24
cefdinir 300 mg capsule 300 mg PO BID 4 days #8 caps 05/03/24
Review of Systems
-
A 12 point ROS was completed and negative except as noted: Yes
Physical Exam
Vital Signs
Vital Signs
Temp Pulse Resp BP Pulse Ox
99.2 F 66 19 118/63 94
05/14/24 02:52 05/14/24 02:45 05/14/24 02:45 05/14/24 02:02 05/14/24 02:45
Physical exam:
General: Acutely ill
HEENT: Normocephalic, Atraumatic and Moist Mucous Membranes
Respiratory: Coarse crackles in the right base; Negative Wheezes or Rhonchi
Cardiac: Regular Rhythm and S1/S2
GI: Soft, Nontender and Nondistended
Musculoskeletal: No Clubbing, No Cyanosis and No Edema
Neuro: Awake, Alert and Oriented
Psych: Calm
Physical Exam
General: Other
Laboratory Results
-
05/13/24 21:48
05/13/24 21:48
Laboratory Results
Total Bilirubin 1.0 mg/dl (0.2-1.3) 05/13/24 21:48
AST 25 U/L (17-59) 05/13/24 21:48
ALT 30 U/L (0-50) 05/13/24 21:48
Alkaline Phosphatase 99 U/L (38-126) 05/13/24 21:48
Troponin I < 0.012 ng/ml 05/13/24 22:53
Lipase 180 U/L (23-300) 05/13/24 21:48
Data Reviewed
-
Diagnostic Radiology: Image Personally Visualized and interpreted
CT Scan: Image Personally Visualized and interpreted
Lab Data: Labs Reviewed by me
Impression/Plan
-
IMPRESSION:
Patient 48 years old male with history of TBI came into the hospital with recurrent pneumonia. Patient at risk of morbidity mortality and sepsis. He will need to be treated in the hospital and monitor accordingly.
PLAN:
Recurrent pneumonia:
Seen chest x-ray and CT scan of the abdomen and follow-up definitive report.
Check MRSA swab
Speech pathology eval for swallowing evaluation
Continue Zosyn and vancomycin. If MRSA swab negative discontinue vancomycin.
Gentle IV fluid
Follow-up WBC trend
Acute kidney injury:
Avoid nephrotoxic
Monitor renal function closely especially after receiving contrast
Monitor urine output
IV fluid
Check bladder scan to rule out postobstructive component
Creatinine today is 4.5 and baseline is 1.1 back in May 08, 2024
Acute hypoxic respiratory insufficiency:
Oxygen supplementation
Wean oxygen as able
Bronchodilators as needed
Incentive spirometry
Other medical problems:
Traumatic brain injury intellectual disability
Dyslipidemia
DVT prophylaxis:
Lovenox for 40 mg SQ daily
CODE STATUS:
Full code
Time spent 75 minutes
[2024-05-14] MEDS: NSS 1000 IV ×3 (06:44→22:48)
[2024-05-14 07:49] LABS: % Basophils 0.2 % (0-2); % Eosinophils 0.3 % (0-6); % Immature Granulocytes 0.3 % (0-0.5); % Lymphocytes 11.1 % (20.5-51.1); % Monocytes 7.6 % (1.7-9.3); % Neutrophils 80.5 % (42.2-75.2); Absolute Lymphocytes 1.5 10^3/uL (1.2-3.4); Absolute Neutrophils 10.5 10^3/uL (1.4-6.5); Hematocrit 42.3 % (39.0-52.0); Mean Corp Hgb Conc. 33.1 g/dL (33.0-37.0); Mean Corpuscular Hgb 28.1 pg (27.0-31.0); Mean Corpuscular Volume 84.9 fL (80.0-94.0); Mean Platelet Volume 9.3 fL (7.4-10.4); Nucleated Red Blood Cells % 0 % (-); Platelet Count 324 10^3/uL (130-400); Red Blood Cell Count 4.98 10^6/uL (4.70-6.10); Red Cell Dist. Width 13.1 % (11.5-14.5); White Blood Cell Count 13.1 10^3/uL (4.8-10.8)
[2024-05-14 08:39] LABS: Blood Urea Nitrogen 15 mg/dl (9-20); Calcium 8.7 mg/dl (8.4-10.2); Carbon Dioxide 27 mmol/L (22-30); Chloride 103 mmol/L (98-107); Estimated Creatinine Clearance 74 ml/min; Glucose 97 mg/dl (70-99); Potassium 3.9 mmol/L (3.5-5.1); Sodium 139 mmol/L (135-145); eGFR > 60.00
--- NOTE | 2024-05-14 09:09 | PTOTSP ---
SPEECH THERAPY SWALLOW EVALUATION:
Patient exhibits grossly functional oropharyngeal swallow at this time, with no overt signs of aspiration. However, patient currently admitted with signs concerning for pneumonia (CXR still pending); Abdominal CT demonstrating RLL consolidation with
groundglass opacities suspicious for infection; elevated WBC. Additionally, patient recently d/c'd 05/06 following pneumonia. Patient with dysphagia/aspiration risks factors including history of TBI with cognitive impairments, suspect history of prior
trach given scar at sternal notch. No history of ST at . Recommend Videofluoroscopic Swallowing Study to further assess patient's swallow function. Given chronicity of suspected dysphagia, along with stable respiratory status at this time, patient
appears safe to continue current diet of Regular texture solids and thin liquids until VSE. ST to follow for additional recommendations following VSE results.
RECOMMEND:
1) Videofluoroscopic Swallowing Study
2) continue Regular texture diet and thin liquids
3) meds whole with liquid as best tolerated
4) Aspiration precautions: Upright positioning; Small single sips; Small bites; Slow rate; D/c oral diet if signs of aspiration or a decline in respiratory/mental status
5) ST to follow
--- NOTE | 2024-05-14 09:51 | PHA.VAN.IN ---
Assessment
- Assessment
Renal Function: Appears elevated from baseline (SCR 1.5-->1.2 vs ~0.9 05/03/24)
Plan
- Plan
Initial / Loading Dose: 2000mg - 05/14 02:46
Maintenance Regimen: dosing by level - give 1000mg x1 at 1800
Monitorin/15 0600
MRSA Screen: Ordered per protocol
SCR improving but still slightly above baseline
Will hold off on scheduling maintenance regimen for now as may require further dose adjustment in next 24-48H
Give additional 1000mg x1 tonight as current est CrCl predicts patient will require Q12H interval
Pharmacokinetics Vancomycin I
- -
Patient Age: 48
Patient Sex: Male
Vancomycin Day #: 1
Indication: Pulmonary/Respiratory
Requesting Provider: Dr. Patel
Pertinent Antimicrobial Allergies:
NKDA
Height / Weight:
Height 5 ft 9 in
Actual Weight 87.77 kg
Pertinent Past Medical History: TBI
- Vital Signs / Lab Results
Temp Pulse Resp BP Pulse Ox
99.3 F 63 18 123/71 95
05/14/24 07:23 05/14/24 07:23 05/14/24 07:23 05/14/24 07:23 05/14/24 07:23
Lab Results - Hematology
05/13/24 05/14/24
21:48 06:51
WBC 13.6 H 13.1 H
Lab Results - Chemistry
05/13/24 05/14/24
21:48 06:51
BUN 16 15
Creatinine 1.5 H 1.2
Estimated Creat Clear 74
Albumin 4.6
--- NOTE | 2024-05-14 10:45 | PTOTSP ---
Speech Language Pathology
VIDEOFLUOROSCOPIC SWALLOWING EXAMINATION (VSE) completed. Overall, pt with mild pharyngeal dysphagia. Supraglottic penetration noted at times with liquids, which cleared with a cued throat clear. No aspiration noted. Trace to mild pharyngeal
residue noted. Esophageal sweep demonstrated clear esophagus.
Recommend:
(1) Continue regular solids/thin liquids
(2) Aspiration precautions: sit upright, single cup sips (no straws), intermittent throat clear/reswallow
(3) Meds as tolerated (only take with liquid if able to take single sip)
(4) MAGNETIC PROSPECTING SUPERVISOR to continue to follow
--- NOTE | 2024-05-14 12:40 | W.PN.UPDATE ---
Update Note
Progress Note Update
Non-billable note
Abdominal pain - currently not voicing any pain/n/v. CT a/p normal. No major lab abnormalities. Images reviewed and possible increased stool burden, BID miralax ordered
RLL infiltrate/Pneumonia, Hypoxic resp insuff - patient denies of having shortness of breath, minor leukocytosis/afebrile. CT findings are new in comparison to chest xr from 05/02. Maintain on zosyn to cover for possible aspiration. got VSE and have
some penetration on exam, cleared to be maintained on regular diet.
[2024-05-14] MEDS: MIRALAX 17 GRAMS PO ×2 (13:59→19:12)
--- NOTE | 2024-05-14 15:14 | CM ---
Addendum entered by Senia Gardner 05/14/24 16:11:
CM received call from patients father, per father, patient is not on home oxygen. Patient has been to [facility] in the past. Patients father reports patient does have visual deficits. Father reports he has been patients sole citizenship teacher sine
1990. Patients father reports he will be here to visit patient during the weekend, reports no concerns to CM at this time.
Original Note:
Patient seen in chair, on [facility]. Chart reviewed, patient with history of traumatic brain injury with intellectual disability. Per previous CM note, patient lives with father, no VN or SNF. Patient PCP Brian Keys, pharmacy [facility]
[place].
CM placed call to patients father to discuss initial assessment along with discharge planning. Per Hospitalist, patient should be medically clear for a weekend discharge. CM will continue to follow for all discharge planning needs.
Plan; return home with father.
[2024-05-14] MEDS: LOVENOX 40 MG SC (17:53)
[2024-05-14] MEDS: DUONEB 3 ML INH (18:27)
[2024-05-14 18:51] LABS: Troponin I < 0.012 ng/ml
[2024-05-14] MEDS: MORPHINE SULFATE 1 MG IV (19:12)
--- NOTE | 2024-05-14 20:30 | PTCARENOTE ---
Addendum entered by Barbara Reynolds RN 05/15/24 05:56:
At approx 2230 pt noted in distress again, c/o pain from his chest/abdomen area. PRN Morphine given 138/71, 88, t98.0, Pox 93% on 2LO2. INVENTORY MANAGEMENT SPECIALIST made aware again, no new orders at this time.
Original Note:
Pt noted in distress and c/o chest pain pointing at right side of chest and then abdomen, pain lasted approx 5 min. Pt unable to describe pain or exact location d/t his cognitive status. EKG obtained- NSR, VS 136/76, 80,22, T98.3, Pox 90% Ra, O2
applied at 2L/min with Pox 93%. Trop neg. Abd distended and hypoactive bowel sounds all quad, PRN senna given. INVENTORY MANAGEMENT SPECIALIST made aware, no new orders at this time.
[2024-05-14] MEDS: MORPHINE SULFATE 2 MG IV (22:14)
[2024-05-14] MEDS: SENOKOT-S 1 TABLET PO (22:45)
[2024-05-15 01:32] LABS: Troponin I < 0.012 ng/ml
[2024-05-15] MEDS: ZOSYN 50 IV ×4 (02:26→20:04)
[2024-05-15 07:20] VITALS: BP 134/81
[2024-05-15 07:27] LABS: Hematocrit 41.5 % (39.0-52.0); Hemoglobin 13.8 g/dL (13.0-18.0); Mean Corp Hgb Conc. 33.3 g/dL (33.0-37.0); Mean Corpuscular Hgb 28.5 pg (27.0-31.0); Mean Corpuscular Volume 85.6 fL (80.0-94.0); Mean Platelet Volume 9.4 fL (7.4-10.4); Platelet Count 270 10^3/uL (130-400); Red Blood Cell Count 4.85 10^6/uL (4.70-6.10); Red Cell Dist. Width 13.4 % (11.5-14.5); White Blood Cell Count 15.8 10^3/uL (4.8-10.8)
[2024-05-15 07:57] LABS: Blood Urea Nitrogen 14 mg/dl (9-20); Calcium 8.3 mg/dl (8.4-10.2); Carbon Dioxide 26 mmol/L (22-30); Chloride 104 mmol/L (98-107); Estimated Creatinine Clearance 88 ml/min; Glucose 111 mg/dl (70-99); Potassium 4.2 mmol/L (3.5-5.1); Sodium 137 mmol/L (135-145); eGFR > 60.00
[2024-05-15] MEDS: MIRALAX 17 GRAMS PO ×2 (08:26→20:04)
[2024-05-15] MEDS: NSS 1000 IV (08:34)
[2024-05-15] MEDS: DUONEB 3 ML INH ×2 (08:41→15:02)
--- NOTE | 2024-05-15 13:42 | W.PN.HOSP.TC ---
Today's Communication/Plan
-
Continue to biotic
Toradol for symptomatic care
Wean off oxygen as possible
Assessment / Plan
Assessment / Plan
1. Right LL Pneumonia
Acute hypoxic respite insufficiency
-Found on CT chest abdomen pelvis, lower lung section showing infiltrate in right lower lobe
-Speech therapy cleared patient on reg diet
-Maintain on Zosyn empirically
-Stop further IV fluid
-Wean off oxygen as possible
-Will consider repeat chest x-ray tomorrow if hypoxia not improved.
2. Acute kidney injury -resolved
-cr 1.5 at admission, normalized at this point
3. Right parasternal pain
-episodic in nature, pleuritic vs MSK in nature
-serial EKG and trop neg,.
4. Traumatic brain injury intellectual disability
-No behavioral problem
5. Dyslipidemia
-not on any meds
DVT prophylaxis:Lovenox for 40 mg SQ daily
CODE STATUS: Full code
Anticipated Discharge: 24 - 48 hours
Subjective/Interval History
-
Date of Service: May 15, 2024
continues to have episodic right sided chest pain
remains on o2 through NC
no other issues
Objective Data
-
Labs:
Laboratory Results
05/15/24
07:09
WBC 15.8 H
Hgb 13.8
Hct 41.5
Plt Count 270
Sodium 137
Potassium 4.2
Chloride 104
Carbon Dioxide 26
BUN 14
Creatinine 1.0
Glucose 111 H
Calcium 8.3 L
Vital Signs:
Vital Signs
Temp Pulse Resp BP Pulse Ox
98.4 F 81 18 134/81 94
05/15/24 07:20 05/15/24 08:45 05/15/24 08:45 05/15/24 07:20 05/15/24 08:45
I&O
05/14/24 05/15/24 05/16/24
06:59 06:59 06:59
Intake Total 2620 / 2620
Output Total 600 / 600
Balance 2019
Review of Systems
-
History Source: Patient
All other systems: Not reviewed unless documented
Physical Exam
-
General: No Apparent Distress and Comfortable
HEENT: Negative Oxygen
Respiratory: Rhonchi and Other (o2 2L)
Cardiac: Regular Rhythm and S1/S2; Negative Murmur or Rub
GI: Soft, Nontender, Nondistended and Normal Bowel Sounds
Musculoskeletal: No Edema
Neuro: Awake, Alert, Oriented, No Motor Deficits and Nonfocal/Grossly Intact
Psych: Calm
[2024-05-15 15:00] VITALS: BP 130/73
[2024-05-15] MEDS: LOVENOX 40 MG SC (17:17)
[2024-05-15] MEDS: MORPHINE SULFATE 2 MG IV (21:36)
[2024-05-15] MEDS: TORADOL 15 MG IV (23:37)
[2024-05-15 23:44] VITALS: BP 143/84
[2024-05-16] MEDS: ZOSYN 50 IV ×2 (02:06→07:51)
[2024-05-16 06:05] LABS: Hematocrit 37.3 % (39.0-52.0); Hemoglobin 12.7 g/dL (13.0-18.0); Mean Corpuscular Hgb 28.2 pg (27.0-31.0); Mean Corpuscular Volume 82.9 fL (80.0-94.0); Mean Platelet Volume 9.5 fL (7.4-10.4); Platelet Count 256 10^3/uL (130-400); Red Cell Dist. Width 13.5 % (11.5-14.5); White Blood Cell Count 13.9 10^3/uL (4.8-10.8)
[2024-05-16 06:19] LABS: Blood Urea Nitrogen 14 mg/dl (9-20); Calcium 8.4 mg/dl (8.4-10.2); Carbon Dioxide 27 mmol/L (22-30); Chloride 103 mmol/L (98-107); Estimated Creatinine Clearance 88 ml/min; Glucose 110 mg/dl (70-99); Sodium 138 mmol/L (135-145); eGFR > 60.00
[2024-05-16 07:10] VITALS: BP 142/68
[2024-05-16] MEDS: MIRALAX 17 GRAMS PO ×2 (07:51→20:25)
[2024-05-16] MEDS: TORADOL 15 MG IV ×2 (07:51→23:15)
[2024-05-16] MEDS: SENOKOT-S 1 TABLET PO (07:51)
--- NOTE | 2024-05-16 12:12 | W.PN.HOSP.TC ---
Today's Communication/Plan
-
see note
Assessment / Plan
Assessment / Plan
1. Right LL Pneumonia
Acute hypoxic respite insufficiency
-Found on CT chest abdomen pelvis, lower lung section showing infiltrate in right lower lobe
-Speech therapy cleared patient on reg diet
-Stop further IV fluid
-Changed zosyn to unasyb
-repeat chest xr , continue wean off as possible.
-check COVID
2. Acute kidney injury -resolved
-cr 1.5 at admission, normalized at this point
3. Right parasternal pain
-episodic in nature, pleuritic vs MSK in nature
-serial EKG and trop neg,.
4. Traumatic brain injury intellectual disability
-No behavioral problem
5. Dyslipidemia
-not on any meds
DVT prophylaxis:Lovenox for 40 mg SQ daily
CODE STATUS: Full code
Anticipated Discharge: 24 - 48 hours
Subjective/Interval History
-
Date of Service: May 16, 2024
Sitting comfortably in chair
Remains on oxygen to nasal cannula
Right-sided pain is better
Objective Data
-
Labs:
Laboratory Results
05/16/24
05:42
WBC 13.9 H
Hgb 12.7 L
Hct 37.3 L
Plt Count 256
Sodium 138
Potassium 4.0
Chloride 103
Carbon Dioxide 27
BUN 14
Creatinine 1.0
Glucose 110 H
Calcium 8.4
Vital Signs:
Vital Signs
Temp Pulse Resp BP Pulse Ox
98.1 F 75 14 142/68 93
05/16/24 07:10 05/16/24 07:10 05/16/24 07:10 05/16/24 07:10 05/16/24 07:10
I&O
05/15/24 05/16/24 05/17/24
06:59 06:59 06:59
Intake Total 2620 / 2620 1080 / 1080
Output Total 600 / 600
Balance 2019 1080 / 1080
Review of Systems
-
Respiratory: Reports No Symptoms
Cardiac: Reports Chest Pain (Right lower rib, minimal)
Abdomen/GI: Reports No Symptoms
Physical Exam
-
General: No Apparent Distress and Comfortable
HEENT: Negative Oxygen
Respiratory: Rhonchi and Other (o2 2L)
Cardiac: Regular Rhythm and S1/S2; Negative Murmur or Rub
GI: Soft, Nontender and Nondistended
Musculoskeletal: No Edema
Neuro: Awake, Alert, Oriented, No Motor Deficits and Nonfocal/Grossly Intact
Psych: Calm
[2024-05-16 15:15] VITALS: BP 124/67
[2024-05-16] MEDS: UNASYN IV ×2 (15:24→20:28)
[2024-05-16 15:47] LABS: COVID-19 Antigen Positive (Negative)
[2024-05-16] MEDS: LOVENOX 40 MG SC (19:00)
[2024-05-16] MEDS: MORPHINE SULFATE 2 MG IV (21:27)
[2024-05-16 23:09] VITALS: BP 138/77
[2024-05-17] MEDS: MORPHINE SULFATE 2 MG IV (01:47)
[2024-05-17] MEDS: UNASYN IV ×2 (01:48→09:57)
[2024-05-17 02:33] VITALS: BP 150/92
[2024-05-17] MEDS: DULCOLAX 10 MG RECTAL (02:38)
--- NOTE | 2024-05-17 03:30 | PTCARENOTE ---
Pt intermittently c/o severe pain in his 'right ribs'. During these episodes, pt appears to have intermittent sharp and shooting pains with hyperventilation, occasionally relieved by laying on his side. Pt requiring more pain medication this shift
than previous shifts. When pt is asked to point to the source of the pain, pt points to R lower ribs/RUQ area, also c/o low back pain. Pt with known constipation, no BM documented this stay. Pt has difficulty finishing his Miralax to completion.
Pt's abdomen with + bowel sounds, but round and firm to palpation. PRN Dulcolax ordered with positive effect shortly after resulting in a very large bowel movement. Pt reports significant improvement in sx since BM. D/w covering SOLUTION SALES SENIOR EXECUTIVE, continue to
monitor bowels, no new orders at this time.
[2024-05-17 04:03] VITALS: BP 133/71
[2024-05-17 06:05] LABS: Hematocrit 38.3 % (39.0-52.0); Hemoglobin 13.1 g/dL (13.0-18.0); Mean Corp Hgb Conc. 34.2 g/dL (33.0-37.0); Mean Corpuscular Hgb 28.3 pg (27.0-31.0); Mean Corpuscular Volume 82.7 fL (80.0-94.0); Mean Platelet Volume 9.7 fL (7.4-10.4); Platelet Count 298 10^3/uL (130-400); Red Blood Cell Count 4.63 10^6/uL (4.70-6.10); Red Cell Dist. Width 13.5 % (11.5-14.5); White Blood Cell Count 12.4 10^3/uL (4.8-10.8)
[2024-05-17 06:35] LABS: Blood Urea Nitrogen 15 mg/dl (9-20); Calcium 8.6 mg/dl (8.4-10.2); Carbon Dioxide 28 mmol/L (22-30); Chloride 103 mmol/L (98-107); Estimated Creatinine Clearance 88 ml/min; Glucose 103 mg/dl (70-99); Potassium 4.3 mmol/L (3.5-5.1); Sodium 139 mmol/L (135-145); eGFR > 60.00
[2024-05-17 07:20] VITALS: BP 112/62
[2024-05-17] MEDS: MIRALAX 17 GRAMS PO (09:56)
[2024-05-17] MEDS: DECADRON 6 MG IV (09:58)
[2024-05-17 11:25] VITALS: O2SAT 92; O2SAT 95
--- NOTE | 2024-05-17 11:31 | W.PN.HOSP.TC ---
Addendum entered and electronically signed by Avni Espinal MD 05/18/24 16:01:
[id number]
Original Note:
Today's Communication/Plan
-
Unasyn changed to Augmentin to complete 7-day course of antibiotics
� Initiate Decadron, complete 10-day course
-CBC in 1 week with pcp
Assessment / Plan
Assessment / Plan
#Sepsis
#Right LL Pneumonia
#Acute hypoxic respiratory failure
#SARS-CoV-2
-Most likely bacterial pneumonia along with SARS-CoV-2
- Weaned off O2
-Found on CT chest abdomen pelvis, lower lung section showing infiltrate in right lower lobe
-Speech therapy cleared patient on reg diet
-Stop further IV fluid
Unasyn changed to Augmentin to complete 7-day course of antibiotics
� Initiate Decadron, complete 10-day course
-
#Acute kidney injury -resolved
#Right parasternal pain
-episodic in nature, pleuritic vs MSK in nature
-serial EKG and trop neg,.
#Traumatic brain injury intellectual disability
-No behavioral problem
#Dyslipidemia
-not on any meds
DVT prophylaxis:Lovenox for 40 mg SQ daily
CODE STATUS: Full code
More than 30 minutes spent in discharge including
Final examination of the patient
Summarizing hospital stay
Instructions for continuing care to all relevant caregivers
Preparation of discharge records, prescriptions, and referral forms
Total time spent (35 in minutes):
Anticipated Discharge: Today
Subjective/Interval History
-
Date of Service: May 17, 2024
Patient off O2 this morning., Nontoxic
Objective Data
-
Labs:
Laboratory Results
05/17/24
05:42
WBC 12.4 H
Hgb 13.1
Hct 38.3 L
Plt Count 298
Sodium 139
Potassium 4.3
Chloride 103
Carbon Dioxide 28
BUN 15
Creatinine 1.0
Glucose 103 H
Calcium 8.6
Vital Signs:
Vital Signs
Temp Pulse Resp BP Pulse Ox
98.4 F 82 18 112/62 93
05/17/24 07:20 05/17/24 07:20 05/17/24 07:20 05/17/24 07:20 05/17/24 07:20
I&O
05/16/24 05/17/24 05/18/24
06:59 06:59 06:59
Intake Total 1080 / 1080 480 / 480
Output Total 500 / 500
Balance 1080 / 1080 -20 / -20
Review of Systems
-
History Source: Patient
All other systems: Not reviewed unless documented
Physical Exam
-
General: No Apparent Distress and Comfortable
HEENT: Negative Oxygen
Respiratory: Rhonchi and Other (o2 2L)
Cardiac: Regular Rhythm and S1/S2; Negative Murmur or Rub
GI: Soft, Nontender and Nondistended
Musculoskeletal: No Edema
Neuro: Awake, Alert, Oriented, No Motor Deficits and Nonfocal/Grossly Intact
Psych: Calm
Data Reviewed
-
Diagnostic Radiology: Image personally visualized and interpreted and Report Reviewed by me
Labs: Labs Reviewed by me
--- NOTE | 2024-05-17 11:37 | W.DS.TRANS ---
DC Summary - [employer]
-
Discharge Instructions:
Discharge Diagnosis/Procedures Right LL Pneumonia
MARIANNE
SARS-CoV-2
Diet Low Cholesterol,2 Gram Sodium
Activity As tolerated
Blood Work cbc in 1 week
Instructions:
Stand-Alone Forms:
Changes to Home Medications: Yes
Discharge Medications:
DC Medications w/original date entered in [facility]
terbinafine HCl 250 mg tablet 250 mg PO Q36H fungal infection 04/29/24
amoxicillin 875 mg-potassium clavulanate 125 mg tablet 1 tab PO Q12H 5 days #10 tabs 05/17/24
dexamethasone 6 mg tablet 6 mg PO DAILY 9 days #9 tabs 05/17/24
Home Medication Changes
amoxicillin 875 mg-potassium clavulanate 125 mg tablet 1 tab PO Q12H 5 days #10 tabs 05/17/24
dexamethasone 6 mg tablet 6 mg PO DAILY 9 days #9 tabs 05/17/24
Pending Results: No
--- NOTE | 2024-05-17 13:02 | CM ---
Patient has been medically cleared for discharge to home with no additional skilled services. Attending and this CM reinforced to father the need for patient to isolate, wear mask and not be around other people. He expressed understanding. Father
will transport home.
[2024-05-17 13:31] VITALS: BP 126/68
== END 2024-05-17 14:58 | disposition home or self-care (01) | DRG 871 ==
LOC: 2 NORTH 04:36
PROVIDERS: Emergency Medicine; Hospitalist; ADMITTING PHYSICIAN Hospitalist; ATTENDING PHYSICIAN Internal Medicine; EMERGENCY PHYSICIAN Student in an Organized Health Care Education/Training Program
DX: A41.89 Other specified sepsis (principal); J18.9 Pneumonia, unspecified organism; J96.01 Acute respiratory failure with hypoxia; U07.1 COVID-19; N17.9 Acute kidney failure, unspecified; S06.9XAS Unspecified intracranial injury with loss of consciousness status unknown, sequela; F79 Unspecified intellectual disabilities; E78.5 Hyperlipidemia, unspecified; R10.9 Unspecified abdominal pain; Z79.899 Other long term (current) drug therapy; Z87.01 Personal history of pneumonia (recurrent)
CPT/HCPCS: 71046; 74177; 74230; 80048; 80053; 83690; 83880; 84484; 85025; 85027; 87040; 87641; 87811; 92610; 92611; 93005; 94640; 94760; 94761; 96365; 96366; 96367; 96375; 99285; Q9967

== ENCOUNTER → 2024-06-14 16:17 | Outpatient (REF) | payer MEDICARE, BC, SELFPAY ==
[2024-06-14 16:44] LABS: % Basophils 0.5 % (0-2); % Eosinophils 5.8 % (0-6); % Immature Granulocytes 0.2 % (0-0.5); % Lymphocytes 29.2 % (20.5-51.1); % Monocytes 7.8 % (1.7-9.3); % Neutrophils 56.5 % (42.2-75.2); Absolute Eosinophils 0.4 10^3/uL (0-0.7); Absolute Lymphocytes 1.8 10^3/uL (1.2-3.4); Absolute Monocytes 0.5 10^3/uL (0.1-0.6); Absolute Neutrophils 3.5 10^3/uL (1.4-6.5); Hematocrit 41.9 % (39.0-52.0); Hemoglobin 14.3 g/dL (13.0-18.0); Mean Corp Hgb Conc. 34.1 g/dL (33.0-37.0); Mean Corpuscular Hgb 28.4 pg (27.0-31.0); Mean Corpuscular Volume 83.1 fL (80.0-94.0); Mean Platelet Volume 9.4 fL (7.4-10.4); Nucleated Red Blood Cells % 0 % (-); Platelet Count 251 10^3/uL (130-400); Red Blood Cell Count 5.04 10^6/uL (4.70-6.10); Red Cell Dist. Width 13.7 % (11.5-14.5); White Blood Cell Count 6.2 10^3/uL (4.8-10.8)
== END ==
LOC: REG 16:17
PROVIDERS: ATTENDING PHYSICIAN Nurse Practitioner Adult Health
DX: J18.9 Pneumonia, unspecified organism (principal); U07.1 COVID-19
CPT/HCPCS: 36415; 71046; 85025

== ENCOUNTER → 2025-01-14 14:48 | Outpatient (REF) | payer MEDICARE, BC, SELFPAY | LOC: HWRAD 14:48 | PROVIDERS: ATTENDING PHYSICIAN Internal Medicine | DX: R93.89 Abnormal findings on diagnostic imaging of other specified body structures (principal); R91.1 Solitary pulmonary nodule | CPT/HCPCS: 71250 ==

== ENCOUNTER → 2025-02-19 11:07 | Outpatient (REF) | payer MEDICARE, BC, SELFPAY ==
[2025-02-19 12:21] LABS: % Basophils 0.4 % (0-2); % Eosinophils 2.5 % (0-6); % Immature Granulocytes 0.1 % (0-0.5); % Monocytes 6.7 % (1.7-9.3); % Neutrophils 69.3 % (42.2-75.2); Absolute Eosinophils 0.2 10^3/uL (0-0.7); Absolute Lymphocytes 1.4 10^3/uL (1.2-3.4); Absolute Monocytes 0.5 10^3/uL (0.1-0.6); Absolute Neutrophils 4.6 10^3/uL (1.4-6.5); Hematocrit 47.7 % (39.0-52.0); Mean Corp Hgb Conc. 33.5 g/dL (33.0-37.0); Mean Corpuscular Hgb 28.2 pg (27.0-31.0); Mean Corpuscular Volume 84.1 fL (80.0-94.0); Nucleated Red Blood Cells % 0 % (-); Platelet Count 251 10^3/uL (130-400); Red Blood Cell Count 5.67 10^6/uL (4.70-6.10); Red Cell Dist. Width 12.5 % (11.5-14.5); White Blood Cell Count 6.7 10^3/uL (4.8-10.8)
[2025-02-19 13:43] LABS: ALT (SGPT) 30 U/L (0-50); AST (SGOT) 28 U/L (17-59); Albumin 4.8 g/dl (3.5-5.0); Alkaline Phosphatase 96 U/L (38-126); Blood Urea Nitrogen 16 mg/dl (9-20); Calcium 9.2 mg/dl (8.4-10.2); Carbon Dioxide 28 mmol/L (22-30); Chloride 101 mmol/L (98-107); Glucose 95 mg/dl (70-99); HDL Cholesterol 40 mg/dl; LDL Cholesterol, Calculated 117 mg/dl; Potassium 4.5 mmol/L (3.5-5.1); Sodium 140 mmol/L (135-145); Total Bilirubin 1.3 mg/dl (0.2-1.3); Total Cholesterol 185 mg/dl (50-199); Total Protein 7.5 g/dl (6.3-8.2); Triglyceride 144 mg/dl (10-149); Very Low Density Lipoprotein 28 mg/dl (0-30); eGFR > 60.00
[2025-02-20 14:39] LABS: PSA Total 0.3 ng/mL (0.0-4.0)
== END ==
LOC: REG 11:07
PROVIDERS: ATTENDING PHYSICIAN Internal Medicine
DX: Z00.01 Encounter for general adult medical examination with abnormal findings (principal); E78.5 Hyperlipidemia, unspecified; Z87.820 Personal history of traumatic brain injury; E66.3 Overweight; E78.1 Pure hyperglyceridemia; Z12.5 Encounter for screening for malignant neoplasm of prostate; R97.20 Elevated prostate specific antigen [PSA]
CPT/HCPCS: 36415; 80053; 80061; 84153; 84154; 85025

== ENCOUNTER → 2025-11-12 07:55 | Outpatient (REF) | payer MEDICARE, BC, SELFPAY | LOC: PAVMRI 07:55 | PROVIDERS: ATTENDING PHYSICIAN Specialist; FAMILY PHYSICIAN Internal Medicine | DX: R26.81 Unsteadiness on feet (principal); S06.2X9S Diffuse traumatic brain injury with loss of consciousness of unspecified duration, sequela | CPT/HCPCS: 70551 ==